=== PATIENT | female | born 1945 | race Caucasian/White ===

== ENCOUNTER 2017-05-03 16:04 | Emergency (ER) | payer MEDICARE ==
[~2017-05-03] VITALS: Ht 162.6 cm; Wt 97.7 kg
[2017-05-03 16:49] LABS: BASOPHILS # (AUTO) 0.04 K/uL (0.00-0.20); BASOPHILS % (AUTO) 0.6 % (0.0-2.0); EOSINOPHILS # (AUTO) 0.12 K/uL (0.00-0.70); EOSINOPHILS % (AUTO) 1.67 % (1.0-6.0); HEMATOCRIT 40.3 % (36-46); HEMOGLOBIN 13.7 g/dL (12.0-16.0); LYMPHOCYTES # (AUTO) 2.1 K/uL (1.0-4.8); MEAN CORPUSCULAR HEMOGLOBIN 29.3 pg (26.0-34.0); MEAN CORPUSCULAR HGB CONC 34.1 G/dL (31.0-37.0); MEAN CORPUSCULAR VOLUME 86 fL (80-100); MONOCYTES # (AUTO) 0.4 K/uL (0.1-1.0); MONOCYTES % (AUTO) 6.1 % (2.0-9.0); NEUTROPHILS # (AUTO) 4.5 K/uL (1.8-7.7); NEUTROPHILS % (AUTO) 62.6 % (40.0-70.0); RED BLOOD CELL COUNT(AUTO) 4.68 MIL/uL (4.00-5.20); RED CELL DISTRIBUTION WIDTH 15.7 % (11.5-14.5); WHITE BLOOD COUNT (AUTO) 7.1 K/uL (4.5-11.0)
[2017-05-03 17:03] LABS: ANION GAP 12 mmol/L (8-16); CALCIUM, TOTAL 8.8 mg/dL (8.8-10.5); CARBON DIOXIDE 24 mmol/L (22-29); CHLORIDE 101 mmol/L (98-107); CREATININE 0.66 mg/dL (0.60-1.30); GLOMERULAR FILTR. RATE CALC > 60 mL/min (>60); POTASSIUM 3.8 mmol/L (3.5-5.1); SODIUM SERUM 137 mmol/L (136-145); UREA NITROGEN, BLOOD 18 mg/dL (7-18)
[2017-05-03 17:08] LABS: ALANINE AMINOTRANSFERASE 22 U/L (12-78); ALBUMIN 3.9 g/dL (3.4-5.0); ASPARTATE AMINOTRANSFERASE 24 U/L (15-37); BILIRUBIN,TOTAL 0.6 mg/dL (0.1-1.0); TOTAL PROTEIN, SERUM 7.1 g/dL (6.4-8.2)
[2017-05-03 17:42] LABS: PLATELET COUNT (AUTO) 176 K/uL (150-450)
[2017-05-03 20:25] VITALS: BP 125/74
== END 2017-05-03 20:28 | disposition home or self-care (01) ==
LOC: EMS 16:06
DX: F31.9 Bipolar disorder, unspecified (principal); I10 Essential (primary) hypertension; Z59.0 Homelessness
CPT/HCPCS: 36415; 80053; 80307; 85025; 99285; G0480

== ENCOUNTER 2017-05-06 20:54 | Emergency (ER) | payer MEDICARE ==
[~2017-05-06] VITALS: Ht 162.6 cm; Wt 98.0 kg
[2017-05-06] MEDS ORDERED: LISI-661 PO (21:15)
[2017-05-06] MEDS ORDERED: LEVE500T53 PO (21:15)
[2017-05-06 22:12] VITALS: BP 163/90
[2017-05-06] MEDS ORDERED: HYDROCODONE/ACETAMINOPHEN 5-325 MG TABLET PO ONE (23:00)
== END 2017-05-06 23:07 | disposition home or self-care (01) ==
LOC: EMS 20:56
DX: Z76.0 Encounter for issue of repeat prescription (principal); I10 Essential (primary) hypertension; G40.909 Epilepsy, unspecified, not intractable, without status epilepticus; F31.9 Bipolar disorder, unspecified
CPT/HCPCS: 99283